=== PATIENT | female | born 1995 | race African-American/Black ===

== ENCOUNTER 2016-06-11 18:16 | Emergency (ER) | payer MEDICAID ==
[~2016-06-11] VITALS: Ht 165.1 cm; Wt 65.0 kg
[~2016-06-11 18:16] MED LIST: IBUP600 PO; LORTA5 PO; PENI500T PO
[2016-06-11 18:19] VITALS: BP 121/63; PULSE 76; RESP 15; TEMP 97.8; O2SAT 98
--- NOTE | 2016-06-11 19:22 | PD ---
HPI Chief Complaint: Related Problem Time Seen by Provider: 19:12 Travel History International Travel<30 days: No Contact w/Intl Traveler<30days: No Traveled to known affect area: No History of Present Illness HPI 20-year-old female with history of ectopic who estimates that she has 7 weeks based on her last menstrual period being April 24, positive home test. She presents for evaluation of lower abdominal pain. Symptoms started 1 hour prior to arrival. She describes it as a crampy pain across her suprapubic region which is constant, no aggravating or relieving factors. Associated clear vaginal discharge which just noticed well. Denies any vaginal bleeding, dysuria, vomiting, flank pain. She does endorse some nausea as well as increased urinary frequency. She has not yet established care with an COBOL MAINFRAME DEVELOPER. No other complaints. PFSH Past Medical History ?: Social History Alcohol Use: No Tobacco Use: No Substance Use: No Allergies-Medications (Allergen,Severity, Reaction): Coded Allergies: No Known Allergies (Unverified , 06/11/16) Reported Meds & Prescriptions Reported Meds & Active Scripts Active Flagyl (Metronidazole) 500 Mg Tab 500 Mg PO BID 7 Days Macrobid (Nitrofurantoin Monoh/Nitrofur Macro) 100 Mg Cap 100 Mg PO BID 7 Days Review of Systems Except as stated in HPI: all other systems reviewed are Neg Physical Exam Narrative GENERAL: Well-developed well-nourished female in no acute distress SKIN: Warm and dry. HEAD: Atraumatic. Normocephalic. EYES: Pupils equal and round. No scleral icterus. No injection or drainage. ENT: No nasal bleeding or discharge. Mucous membranes pink and moist. NECK: Trachea midline. No JVD. CARDIOVASCULAR: Regular rate and rhythm. No murmur appreciated. RESPIRATORY: No accessory muscle use. Clear to auscultation. Breath sounds equal bilaterally. GASTROINTESTINAL: Abdomen soft, mild generalized tenderness to palpation of the lower quadrants without guarding. Pelvic examination performed in the presence of a female nurse: He is a scant amount of white discharge noted in the vaginal canal. There is no cervical motion tenderness or adnexal tenderness. There is no fluid coming from the cervical os. MUSCULOSKELETAL: No obvious deformities. No clubbing. No cyanosis. No edema. NEUROLOGICAL: Awake and alert. No obvious cranial nerve deficits. Motor grossly within normal limits. Normal speech. Data Data Last Documented VS Vital Signs Date Time Temp Pulse Resp B/P Pulse Ox O2 Delivery O2 Flow Rate FiO2 06/11/16 18:19 97.8 76 15 121/63 98 Orders Complete Blood Count With Diff (06/11/16 19:18) Comprehensive Metabolic Panel (06/11/16 19:18) Gc And Chlamydia Pcr (06/11/16 19:18) Us Pelvis (Ques Preg/Ectopic) (06/11/16 ) Wet Prep Profile (06/11/16 19:18) Urinalysis - C+S If Indicated (06/11/16 19:18) Ed Urine Pregnancytest Poc (06/11/16 19:18) Beta Hcg (Quant/Titer) (06/11/16 19:18) Urine Culture (06/11/16 19:30) Labs Laboratory Tests Test 06/11/16 06/11/16 06/11/16 06/11/16 19:30 19:40 19:45 20:10 Urine Color YELLOW Urine Turbidity HAZY Urine pH 6.5 Urine Specific [place] 1.012 Urine Protein 30 mg/dL Urine Glucose (UA) NEG mg/dL Urine Ketones 10 mg/dL Urine Occult Blood NEG Urine Nitrite POS Urine Bilirubin NEG Urine Urobilinogen LESS THAN 2.0 MG/DL Urine Leukocyte Esterase SMALL Urine RBC LESS THAN 1 /hpf Urine WBC 15 /hpf Urine Squamous Epithelial 2 /hpf Cells Urine Bacteria MANY /hpf Urine Hyaline Casts 9 /lpf Urine Mucus FEW /lpf Microscopic Urinalysis Comment CULTURE INDICATED White Blood Count 14.8 TH/MM3 Red Blood Count 3.55 MIL/MM3 Hemoglobin 10.9 GM/DL Hematocrit 31.4 % Mean Corpuscular Volume 88.4 FL Mean Corpuscular Hemoglobin 30.8 PG Mean Corpuscular Hemoglobin 34.8 % Concent Red Cell Distribution Width 12.2 % Platelet Count 320 TH/MM3 Mean Platelet Volume 8.3 FL Neutrophils (%) (Auto) 78.1 % Lymphocytes (%) (Auto) 15.9 % Monocytes (%) (Auto) 5.2 % Eosinophils (%) (Auto) 0.2 % Basophils (%) (Auto) 0.6 % Neutrophils # (Auto) 11.6 TH/MM3 Lymphocytes # (Auto) 2.4 TH/MM3 Monocytes # (Auto) 0.8 TH/MM3 Eosinophils # (Auto) 0.0 TH/MM3 Basophils # (Auto) 0.1 TH/MM3 CBC Comment DIFF FINAL Differential Comment Sodium Level 138 MEQ/L Potassium Level 4.1 MEQ/L Chloride Level 107 MEQ/L Carbon Dioxide Level 23.0 MEQ/L Anion Gap 8 MEQ/L Blood Urea Nitrogen 5 MG/DL Creatinine 0.78 MG/DL Estimat Glomerular Filtration 113 ML/MIN Rate Random Glucose 86 MG/DL Calcium Level 9.0 MG/DL Total Bilirubin 0.4 MG/DL Aspartate Amino Transf 19 U/L (AST/SGOT) Alanine Aminotransferase 18 U/L (ALT/SGPT) Alkaline Phosphatase 78 U/L Total Protein 7.6 GM/DL Albumin 3.7 GM/DL Human Chorionic Gonadotropin, 20487 MIU/ML Quant Clue Cells (Wet Prep) PRESENT Vaginal Trichomonas (Wet Prep) NONE SEEN Vaginal Yeast (Wet Prep) NONE SEEN Chlamydia trachomatis DNA NOT DETECTED (PCR) Neisseria gonorrhoeae DNA NOT DETECTED (PCR) MDM Medical Decision Making Medical Screen Exam Complete: Yes Emergency Medical Condition: Yes Medical Record Reviewed: Yes Interpretation(s) CBC reveals WBC, 14.8, hemoglobin 10.9 Urinalysis reveals positive nitrites, 15 WBCs, many bacteria, culture pending Differential Diagnosis Intrauterine , ectopic , pelvic inflammatory disease, UTI, tubo-ovarian abscess Narrative Course 20-year-old female with early presents with 1 hour of crampy lower abdominal pain and clear vaginal discharge. We will check lab work, blood prep , GC probe, pelvic ultrasound. Urinalysis reveals pyuria, positive nitrites. She has been experiencing increased urinary frequency and so her history and urinalysis suggest urinary tract infection. Wet prep is positive for clue cells. The patient be given a prescription for Flagyl. The patient's ultrasound reveals no evidence of ectopic , there is an intrauterine estimated at 6 weeks 5 days gestational age, small subchorionic hemorrhage. The patient is being given a copy of her ultrasound report. She is stable for discharge. Diagnosis Primary Impression: Cystitis Additional Impressions: Bacterial vaginosis Intrauterine Additional Instructions: Establish care with a COBOL MAINFRAME DEVELOPER for routine evaluation. Take the medications as prescribed. Stay well hydrated well-nourished and return for any emergent medical conditions. Med/Other Pt SpecificInfo: Prescription(s) given Scripts Metronidazole (Flagyl)500 Mg [id number] Mg PO BID 7 Days Ref 0 Prov:Hasmukh Laird MD 06/11/16 Nitrofurantoin Monohydrate Macrocrystals (Macrobid)100 Mg [id number] Mg PO BID 7 Days Ref 0 Prov:Hasmukh Laird MD 06/11/16 Disposition: 01 DISCHARGE HOME Condition: Stable Jus Leal Jun 11, 2016 19:22
[2016-06-11 20:03] LABS: AUTOMATED NEUTROPHIL # 11.6 TH/MM3 (1.8-7.7); BASOPHIL # 0.1 TH/MM3 (0-0.2); BASOPHIL % 0.6 % (0.0-2.0); EOSINOPHIL % 0.2 % (0.0-4.0); HEMATOCRIT 31.4 % (35.0-46.0); HEMO FLAGS DIFF FINAL; LYMPH % 15.9 % (9.0-44.0); LYMPHOCYTE # 2.4 TH/MM3 (1.0-4.8); MEAN CELL VOLUME 88.4 FL (80.0-100.0); MEAN CORPUSCULAR HEMOGLOBIN 30.8 PG (27.0-34.0); MEAN CORPUSCULAR HGB CONC 34.8 % (32.0-36.0); MONO % 5.2 % (0.0-8.0); NEUT % 78.1 % (16.0-70.0); PLATELET COUNT 320 TH/MM3 (150-450); RED BLOOD COUNT 3.55 MIL/MM3 (4.00-5.30); RED CELL DISTRIBUTION WIDTH 12.2 % (11.6-17.2); WHITE BLOOD COUNT 14.8 TH/MM3 (4.0-11.0)
[2016-06-11 20:14] LABS: BACTERIA, URINE MANY /hpf; BLOOD, URINE NEG (NEG); COMMENT (UR) CULTURE INDICATED; CULTURE IF INDICATED CULTURE INDICATED; GLUCOSE,URINE NEG (NEG); HYALINE CAST, URINE 9 /lpf (RARE); KETONE, URINE 10 mg/dL (NEG); MUCUS URINE FEW /lpf (OCC); NITRITE,URINE POS (NEG); PH, URINE 6.5 (5.0-8.5); SQUAMOUS EPITHELIAL CELL URINE 2 /hpf (0-5); URINE COLOR YELLOW (YELLW/STRAW)
[2016-06-11 20:16] LABS: ANION GAP 8 MEQ/L (5-15); AST (GOT) 19 U/L (15-37); BLOOD UREA NITROGEN 5 MG/DL (7-18); CHLORIDE 107 MEQ/L (98-107); GLOMERULAR FILTRATION RATE 113 ML/MIN (>89); POTASSIUM 4.1 MEQ/L (3.5-5.1); SODIUM (NA) 138 MEQ/L (136-145)
[2016-06-11 20:36] LABS: ALKALINE PHOSPHATASE 78 U/L (45-117); ALT (GPT) 18 U/L (10-53); BETA HCG QUANT 49499 MIU/ML (0-5); TOTAL BILIRUBIN ADULT 0.4 MG/DL (0.2-1.0)
[2016-06-11] MEDS ORDERED: MACR100C2 PO (20:42)
[2016-06-11] MEDS ORDERED: METR-1 PO (20:42)
--- NOTE | 2016-06-11 21:31 | RADRPT ---
EXAM DATE/TIME: 06/11/2016 20:26 [facility] COMPARISON: No previous studies available for comparison. INDICATIONS : Pelvic pain. LAB(S): Beta-hC,499 MEDICAL HISTORY : . SURGICAL HISTORY : section. Ectopic . ENCOUNTER: Initial ACUITY: 1 day PAIN SCORE: 7/10 LOCATION: Bilateral pelvis MEASUREMENTS: UTERUS: 9.5 x 7.3 x 6.3 cm ENDOMETRIAL STRIPE: >20 mm RIGHT OVARY: 3.8 x 2.4 x 2.4 cm LEFT OVARY: 2.3 x 2.7 x 1.4 cm FREE FLUID: None CROWN RUMP LENGTH: 0.8 cm = 6 WKS 5 DAYS FHR: 147 BPM FINDINGS: There is evidence of a single intrauterine with cardiac activity. A yolk sac is identified . The heart rate was calculated at 147 bpm. The crown-rump length correlates to a gestational age of 6 weeks, 5 days. The gestational sac size correlates to a gestational age of 6 weeks, 3 days . There is no free fluid within the cul-de-sac. No adnexal mass is noted. Tiny subchorionic hemorr hages are noted measuring 1.7 cm and 2.2 cm respectively. The ovaries are unremarkable. CONCLUSION: 1. Single intrauterine with cardiac activity with a crown rump length correlating to a ges tational age of 6 weeks, 5 days. 2. Tiny subchorionic hemorrhages measuring 1.7 cm and 2.2 cm respectively. 3. No free fluid within the cul-de-sac or adnexal mass. Royal Jimenez MD on June 11, 2016 at 21:22 Board Certified Radiologist. This report was verified electronically.
[2016-06-11 22:59] LABS: CHLAMYDIA PCR NOT DETECTED (NOT DETECT); NEISSERIA PCR NOT DETECTED (NOT DETECT)
== END 2016-06-11 22:10 | disposition home or self-care (01) ==
LOC: NEPB 18:16
DX: O23.11 Infections of bladder in pregnancy, first trimester (principal); B96.20 Unspecified Escherichia coli [E. coli] as the cause of diseases classified elsewhere; Z3A.01 Less than 8 weeks gestation of pregnancy
CPT/HCPCS: 76700; 80053; 81001; 84702; 84703; 85025; 87077; 87086; 87186; 87210; 87491; 87591

== ENCOUNTER 2016-07-10 19:23 | Emergency (ER) | payer MEDICAID ==
[~2016-07-10] VITALS: Ht 165.1 cm; Wt 52.0 kg
[~2016-07-10 19:23] MED LIST changes: -IBUP600 PO; -LORTA5 PO; +MACR100C2 PO; +METR-1 PO; -PENI500T PO
[2016-07-10 19:45] VITALS: BP 111/61; PULSE 86; RESP 16; TEMP 98.3; O2SAT 98
--- NOTE | 2016-07-10 20:52 | PD ---
HPI Chief Complaint: Oral / Dental Pain or Problem Time Seen by Provider: 20:10 Travel History International Travel<30 days: No Contact w/Intl Traveler<30days: No Traveled to known affect area: No History of Present Illness HPI Patient is a 20-year-old female presenting to the emergency room evaluation of left upper tooth pain. Pain started approximately 2 hours prior to arrival. Patient denies any headache and reports that the pain is throbbing in nature and it hurts to bite down. Patient is approximately 11 weeks . She reports the pain is an 8 out of 10. PFSH Past Medical History Medical History: Denies Significant Hx Diminished Hearing: No Immunizations Current: Yes Tetanus Vaccination: > 5 Years Influenza Vaccination: No ?: LMP: 04/24/16 : 3 Para: 1 Past Surgical History Genitourinary Surgery: Yes (ECTOPIC 2014) Social History Alcohol Use: No Tobacco Use: No Substance Use: No Allergies-Medications (Allergen,Severity, Reaction): Coded Allergies: No Known Allergies (Unverified , 07/10/16) Reported Meds & Prescriptions Reported Meds & Active Scripts Active No Active Prescriptions or Reported Medications Review of Systems Except as stated in HPI: all other systems reviewed are Neg HENT: Positive: Dental Difficulties Physical Exam Narrative GENERAL: Well-nourished, well-developed patient. SKIN: Focused skin assessment warm/dry. HEAD: Normocephalic. EYES: No scleral icterus. No injection or drainage. MOUTH: Mucous membranes moist, no lesions, tongue and gums appear normal. There is no signs of obvious dental caries. Patient has pain when she bites down. NECK: Supple, trachea midline. No JVD or lymphadenopathy. CARDIOVASCULAR: Regular rate and rhythm without murmurs, gallops, or rubs. RESPIRATORY: Breath sounds equal bilaterally. No accessory muscle use. GASTROINTESTINAL: Abdomen soft, non-tender, nondistended. MUSCULOSKELETAL: No cyanosis, or edema. BACK: Nontender without obvious deformity. No CVA tenderness. Data Data Last Documented VS Vital Signs Date Time Temp Pulse Resp B/P Pulse Ox O2 Delivery O2 Flow Rate FiO2 07/10/16 19:45 98.3 86 16 111/61 98 MDM Medical Decision Making Medical Screen Exam Complete: Yes Emergency Medical Condition: Yes Interpretation(s) Vital Signs Date Time Temp Pulse Resp B/P Pulse Ox O2 Delivery O2 Flow Rate FiO2 07/10/16 19:45 98.3 86 16 111/61 98 Differential Diagnosis Dentalgia versus abscess versus caries versus neuralgia versus other Narrative Course Patient is a 20-year-old female presenting to the emergency evaluation of 2 hours of dental pain to the left upper third molar/wisdom tooth. Patient will be started on Keflex, she is 11 weeks . Discussed with my attending physician all she can be offered for pain management this time is acetaminophen. She was given dose of acetaminophen and Keflex prior to discharge. Patient eloped from the emergency department prior to medication administration prior to being given discharge instructions. Referrals: Dentist 2 days Patient Instructions: Toothache (ED) Additional Instructions: Follow-up with a dentist Complete full course of anti-biotics as prescribed Return to emergency department for any new or worsening symptoms Scripts No Active Prescriptions or Reported Meds Disposition: 07 AGAINST MEDICAL ADVICE Cyndi Barksdale Jul 10, 2016 20:52
[2016-07-10] MEDS ORDERED: ACETAMINOPHEN 325 MG TAB PO ONE (21:00)
[2016-07-10] MEDS ORDERED: CEPHALEXIN MONOHYDRATE 500 MG CAP PO ONE (21:00)
== END 2016-07-10 20:55 | disposition left against medical advice (07) ==
LOC: PHEFT 19:23
DX: O99.89 Other specified diseases and conditions complicating pregnancy, childbirth and the puerperium (principal); K08.89 Other specified disorders of teeth and supporting structures; Z53.20 Procedure and treatment not carried out because of patient's decision for unspecified reasons; Z3A.11 11 weeks gestation of pregnancy
CPT/HCPCS: 99282

== ENCOUNTER 2016-08-07 20:14 | Emergency (ER) | payer MEDICAID ==
[~2016-08-07] VITALS: Ht 167.6 cm; Wt 68.0 kg
[2016-08-07 20:16] VITALS: BP 109/59; PULSE 111; RESP 14; TEMP 98.2; O2SAT 100
--- NOTE | 2016-08-07 20:59 | PD ---
HPI Chief Complaint: Related Problem Time Seen by Provider: 20:38 Travel History International Travel<30 days: No Contact w/Intl Traveler<30days: No Traveled to known affect area: No History of Present Illness HPI 20-year-old female presents emergency department for evaluation of abdominal cramping and . Patient states approximately 15 weeks and has started having pain in her low back wrapping around her abdomen. Denies any vaginal bleeding vaginal discharge or spotting. Patient is . Has a history of ectopic . Denies any fever denies any diarrhea. Endorses some mild dysuria. PFSH Past Medical History Medical History: Denies Significant Hx Diminished Hearing: No Immunizations Current: Yes Tetanus Vaccination: Unknown Influenza Vaccination: No ?: LMP: 05/14/16 : 3 Para: 1 Past Surgical History Genitourinary Surgery: Yes (ECTOPIC 2014) Social History Alcohol Use: No Tobacco Use: No Substance Use: No Allergies-Medications (Allergen,Severity, Reaction): Coded Allergies: No Known Allergies (Unverified , 08/07/16) Reported Meds & Prescriptions Reported Meds & Active Scripts Active Clotrimazole 7 Vaginal (Clotrimazole Vaginal) 1% Cream 1 Appl VAGINAL HS 7 Days Nitrofurantoin Monohydrate Macrocrystals (Nitrofurantoin Monoh/Nitrofur Macro) 100 Mg Cap 100 Mg PO BID 7 Days Review of Systems Except as stated in HPI: all other systems reviewed are Neg Physical Exam Narrative GENERAL: Well-developed well-nourished no apparent distress, SKIN: Focused skin assessment warm/dry. HEAD: Atraumatic. Normocephalic. EYES: Pupils equal and round. No scleral icterus. No injection or drainage. ENT: No nasal bleeding or discharge. Mucous membranes pink and moist. NECK: Trachea midline. No JVD. CARDIOVASCULAR: Regular rate and rhythm. No murmur appreciated. RESPIRATORY: No accessory muscle use. Clear to auscultation. Breath sounds equal bilaterally. GASTROINTESTINAL: Abdomen soft, non-tender, nondistended. Hepatic and splenic margins not palpable. Abdomen is benign. No CVA tenderness. No rebound no percussive tenderness. Negative Edgar sign. No tenderness at McBurney's point. GENITOURINARY: Exam performed with female nurse real estate branch manager present at all times. Patient has moderate curd like discharge consistent with nemo vaginosis. No bimanual tenderness no cervical motion tenderness. Cervix is closed. MUSCULOSKELETAL: No obvious deformities. No clubbing. No cyanosis. No edema. NEUROLOGICAL: Awake and alert. No obvious cranial nerve deficits. Motor grossly within normal limits. Normal speech. PSYCHIATRIC: Appropriate mood and affect; insight and judgment normal. Data Data Last Documented VS Vital Signs Date Time Temp Pulse Resp B/P Pulse Ox O2 Delivery O2 Flow Rate FiO2 08/07/16 23:28 98.1 84 18 100/54 100 Room Air Orders Urinalysis - C+S If Indicated (08/07/16 20:38) Ed Poc Ultrasound (08/07/16 ) Wet Prep Profile (08/07/16 20:59) Gc And Chlamydia Pcr (08/07/16 20:59) Acetaminophen (Tylenol) (08/07/16 21:00) Urine Culture (08/07/16 21:58) Labs Laboratory Tests Test 08/07/16 08/07/16 21:58 23:05 Urine Color YELLOW Urine Turbidity HAZY Urine pH 6.5 Urine Specific [place] 1.015 Urine Protein 30 mg/dL Urine Glucose (UA) NEG mg/dL Urine Ketones NEG mg/dL Urine Occult Blood SMALL Urine Nitrite POS Urine Bilirubin NEG Urine Urobilinogen LESS THAN 2.0 MG/DL Urine Leukocyte Esterase LARGE Urine RBC 11 /hpf Urine WBC /hpf Urine WBC Clumps RARE Urine Squamous Epithelial <1 /hpf Cells Urine Bacteria MANY /hpf Microscopic Urinalysis Comment CULTURE INDICATED Clue Cells (Wet Prep) NONE SEEN Vaginal Trichomonas (Wet Prep) NONE SEEN Vaginal Yeast (Wet Prep) NONE SEEN Chlamydia trachomatis DNA NOT DETECTED (PCR) Neisseria gonorrhoeae DNA NOT DETECTED (PCR) [facility] Medical Decision Making Medical Screen Exam Complete: Yes Emergency Medical Condition: Yes Differential Diagnosis BV, CV, UTI, STD, pyelonephritis excluded clinically, Narrative Course Patient was roomed in emergency department, given Tylenol and appears well. Vital signs within normal limits. Abdomen is benign. Clinically she has cause for her mild abdominal cramping in her CV and UTI. She will be started on Macrobid as well as clotrimazole cream. Discussed that she needs to follow up with her JOB COACH. Discussed first trimester care avoidance of illicit substances and taking vitamins. She is feeling better after Tylenol sleeping soundly on reassess and abdomen remains benign. She is stable for discharge for outpatient follow-up. Her return to ED criteria. Procedures Procedure Narrative Bedside ultrasound abdomen: Transabdominal ultrasound use of the uterus are obtained showing a 15 week 1 day intrauterine by crown-rump length. Positive movement heart tones are 160. no gross abnormalities. Diagnosis Primary Impression: UTI (urinary tract infection) Qualified Code: N30.00 - Acute cystitis without hematuria Additional Impression: Vaginal candidiasis Med/Other Pt SpecificInfo: Prescription(s) given Scripts Clotrimazole Vaginal (Clotrimazole 7 Vaginal)1% Cream1 Appl VAGINAL HS 7 Days Ref 0 Prov:Royal Henning MD 08/07/16 Nitrofurantoin Monohydrate Macrocrystals 100 Mg [id number] Mg PO BID 7 Days Ref 0 Prov:Royal Henning MD 08/07/16 Disposition: 01 DISCHARGE HOME Condition: Stable Royal Henning MD August 07, 2016 20:59
[2016-08-07] MEDS ORDERED: ACETAMINOPHEN 325 MG TAB PO ONE (21:00)
[2016-08-07 22:48] LABS: BACTERIA, URINE MANY /hpf; BLOOD, URINE SMALL (NEG); COMMENT (UR) CULTURE INDICATED; CULTURE IF INDICATED CULTURE INDICATED; GLUCOSE,URINE NEG (NEG); KETONE, URINE NEG (NEG); NITRITE,URINE POS (NEG); PH, URINE 6.5 (5.0-8.5); SQUAMOUS EPITHELIAL CELL URINE <1 /hpf (0-5); URINE COLOR YELLOW (YELLW/STRAW)
[2016-08-07] MEDS ORDERED: NITR100C4 PO (23:09)
[2016-08-07] MEDS ORDERED: CLOT1CRE23 VAGINAL (23:09)
[2016-08-07 23:28] VITALS: BP 100/54; PULSE 84; RESP 18; TEMP 98.1; O2SAT 100
[2016-08-08 00:56] LABS: CHLAMYDIA PCR NOT DETECTED (NOT DETECT); NEISSERIA PCR NOT DETECTED (NOT DETECT)
== END 2016-08-07 23:38 | disposition home or self-care (01) ==
LOC: NEPD 20:14
DX: O23.42 Unspecified infection of urinary tract in pregnancy, second trimester (principal); B96.20 Unspecified Escherichia coli [E. coli] as the cause of diseases classified elsewhere; B37.3 Candidiasis of vulva and vagina
CPT/HCPCS: 81001; 87077; 87086; 87186; 87210; 87491; 87591; 99284

== ENCOUNTER 2016-09-18 19:40 | Emergency (ER) | payer MEDICAID ==
[~2016-09-18 19:40] MED LIST changes: +CLOT1CRE23 VAGINAL; -MACR100C2 PO; -METR-1 PO; +NITR100C4 PO
--- NOTE | 2016-09-18 20:46 | PD ---
HPI Chief Complaint lower abdominal and vaginal pain Date Seen: Sep 18, 2016 Time Seen: 20:30 Travel History International Travel<30 Days: No Contact w/Intl Traveler<30Days: No Known Affected Area: No History of Present Illness HPI Pt is a 20 y/o with IUP at 19 wks by stated LAURENCE. PNC at [facility], pt does not know which doctor/group. Pt reports lower abdominal cramping x 5 days, intermittent, fluctuating intensity, located diffusely across lower abdomen. She also c/o intermittent vaginal pain/pressure. Pt denies vag discharge or irritation. She denies vag bleeding. She denies dysuria but does sometimes feel pressure with urination. Pt reports +FM. Of note, pt seen in ED in July and dx with UTI. States she completed antibiotic rx prescribed. Para: 1 : 3 Miscarriage: 1 History Past Medical History Medical History: Denies Significant Hx Obstetric History Obstetric History SAB x 1 2014 FT primary for breech Past Surgical History Narrative Surgical Family History Family History: Negative Social History Alcohol Use: No Tobacco Use: No Substance Abuse: No Allergies-Medications (Allergen,Severity, Reaction): Coded Allergies: No Known Allergies (Unverified , 08/07/16) Home Meds Active Scripts Clotrimazole Vaginal (Clotrimazole 7 Vaginal)1% Cream1 Appl VAGINAL HS 7 Days Ref 0 Prov:Royal Henning MD 08/07/16 Nitrofurantoin Monohydrate Macrocrystals 100 Mg Out305 Mg PO BID 7 Days Ref 0 Prov:Royal Henning MD 08/07/16 Review of Systems General / Constitutional: No: Fever, Weight Gain, Weight Loss, Chills, Other Eyes: No: Diploplia, Blurred Vision, Visual changes, Pain, Photophobia, Other HENT: No: Headaches, Vertigo, Dental Difficulties, Lightheadedness, Other Cardiovascular: No: Irregular Rhythm, Chest Pain or Discomfort, Palpitations, Tachycardia, Syncope, Varicosities, Edema, Cyanosis, Other Respiratory: No: Cough, Short of Breath, Wheezing, Other Gastrointestinal: Abdominal Pain Genitourinary: Pelvic Pain Musculoskeletal: No: Limited ROM, Weakness, Cramping, Edema, Pain, Other Skin: No Rash, No Itching, No Dryness, No Lumps, No Change in Pigmentation, No Change in Nails, No Alopecia, No Lesions, No Breast Lumps, No Breast Tenderness , No Breast Swelling, No Other Neurologic: No: Weakness, Dizziness, Syncope, Focal Abnormalities, Coordination Problem, Headache, Slurred Speech, Seizures, Other Psychiatric: No: Anxiety, Depression, Suicidal Ideations, Disorder of Thought, Mood Disorder, Substance Abuse, Homicidal Ideation, Other Endocrine: No: Heat Intolerance, Cold Intolerance, Polydipsia, Polyuria, Other Hematologic/Lymphatic: No Easy Bruising, No Lymph Node Enlargement, No Other Physical Exam 94/45, 85, 16, 98.3 Narrative GENERAL: Well-nourished, well-developed patient. SKIN: Warm and dry. HEAD: Normocephalic and atraumatic. EYES: No scleral icterus. No injection or drainage. ENT: No nasal drainage noted. Mucous membranes pink. Airway patent. NECK: Supple, trachea midline. No JVD. CARDIOVASCULAR: Regular rate and rhythm without murmurs, gallops, or rubs. RESPIRATORY: Breath sounds equal bilaterally. No accessory muscle use. ABDOMEN/GI: Abdomen soft, non-tender, bowel sounds present, no rebound, no guarding Gravid GENITOURINARY: External Genitalia: intact and normal in appearance BUS glands: [wnl] Cervix: no inflammation/lesions, visually closed Dilatation: closed Effacement: long Station: high Presentation: - Membranes: intact Uterine Contractions: none FHT's: 150s EXTREMITIES: No cyanosis or edema. BACK: Nontender without obvious deformity. No CVA tenderness. NEUROLOGICAL: Awake and alert. Motor and sensory grossly within normal limits. Five out of 5 muscle strength in all muscle groups. Normal speech. Data Data Vital Signs Reviewed: Yes Orders Vital Signs (Adult) .ON ADMISSION (09/18/16 20:21) ^ Labor Status (09/18/16 20:21) Urinalysis - C+S If Indicated (09/18/16 20:21) Wet Prep Profile (09/18/16 20:21) Gc And Chlamydia Pcr (09/18/16 20:21) Labs Laboratory Tests Test 09/18/16 09/18/16 20:00 20:30 Urine Color YELLOW Urine Turbidity CLEAR Urine pH 7.0 Urine Specific [place] 1.014 Urine Protein NEG mg/dL Urine Glucose (UA) NEG mg/dL Urine Ketones NEG mg/dL Urine Occult Blood NEG Urine Nitrite NEG Urine Bilirubin NEG Urine Urobilinogen LESS THAN 2.0 MG/DL Urine Leukocyte Esterase NEG Urine RBC LESS THAN 1 /hpf Urine WBC 1 /hpf Urine Squamous Epithelial 1 /hpf Cells Microscopic Urinalysis Comment CULT NOT INDICATED Clue Cells (Wet Prep) NONE SEEN Vaginal Trichomonas (Wet Prep) NONE SEEN Vaginal Yeast (Wet Prep) NONE SEEN MDM Medical Record Reviewed: Yes (previous ER visit reviewed) Narrative Course / MDM 20 y/o with IUP at 19 wks with lower abdominal and vaginal pain/pressure --UA, wet prep, and GC/CT ordered --suspect musculoskeletal pain of ; discussed supportive measures including support belt, warm tub soaks, tylenol Diagnosis Diagnosis: Primary Impression: 19 weeks gestation of Additional Impression: Round ligament pain Disposition: 01 DISCHARGE HOME Condition: Stable Patient Instructions: Labor (ED) Additional Instructions: RETURN FOR CONTRACTIONS, LOSS OF FLUID (WATER BREAKING), VAGINAL BLEEDING, OR DECREASED MOVEMENT DRINK 8-10 LARGE GLASSES OF WATER EVERY DAY KEEP SCHEDULED APPOINTMENT WITH YOUR PROVIDER Departure Forms: Tests/Procedures Brisa Valles MD Sep 18, 2016 20:46
[2016-09-18 20:51] LABS: BLOOD, URINE NEG (NEG); COMMENT (UR) CULT NOT INDICATED; CULTURE IF INDICATED CULT NOT INDICATED; GLUCOSE,URINE NEG (NEG); KETONE, URINE NEG (NEG); NITRITE,URINE NEG (NEG); SQUAMOUS EPITHELIAL CELL URINE 1 /hpf (0-5); URINE COLOR YELLOW (YELLW/STRAW)
[2016-09-18 23:26] LABS: CHLAMYDIA PCR NOT DETECTED (NOT DETECT); NEISSERIA PCR NOT DETECTED (NOT DETECT)
== END 2016-09-18 21:00 | disposition home or self-care (01) ==
LOC: HOBED 19:40
DX: O26.892 Other specified pregnancy related conditions, second trimester (principal); R10.2 Pelvic and perineal pain; Z3A.19 19 weeks gestation of pregnancy
CPT/HCPCS: 81001; 87210; 87491; 87591; 99282

== ENCOUNTER → 2016-11-12 | Outpatient (CLI) | payer MEDICAID | LOC: HPND 11:05 | PROVIDERS: ATTEND Obstetrics & Gynecology | DX: O35.8XX0 Maternal care for other (suspected) fetal abnormality and damage, not applicable or unspecified (principal) | CPT/HCPCS: 76811 ==